=== PATIENT | female | born 1995 | race Caucasian/White ===

== ENCOUNTER 2017-11-02 19:00 | Emergency (ER) | END 2017-11-02 23:08 | disposition home or self-care (01) ==

== ENCOUNTER 2018-05-08 15:43 | Inpatient (IN) | payer OTHER ==
[~2018-05-08] VITALS: Ht 152.4 cm; Wt 71.0 kg
[2018-05-08 15:52] VITALS: Ht 152.4 cm; Wt 71.0 kg
[2018-05-08 15:53] VITALS: BP 127/75
[2018-05-08] MEDS ORDERED: PREN1TAB71 PO (15:55)
--- NOTE | 2018-05-08 16:08 | TRIAGE ---
OB Triage Datetime Report Generated by CPN: 05/08/2018 16:07 Datetime: 05/08/2018 15:59 Vaginal Exam Dilatation (cms): 3.0 Effacement (%): 100 Station: -2 Exam By: Trey CAST Datetime: 05/08/2018 15:47 Stage of : OB Triage Assessment Type: Triage Time of Arrival: 05/08/2018 15:55 EGA: 38.6 Arrived By: Ambulatory Arrived From: Home Chief Complaint: UC'S Movement: Present Contractions: Regular Contractions: 1-3 Rupture of Membranes: Unsure Vaginal Bleeding: None Vaginal Discharge: Present Recent Sexual Intercouse: Denies Abdominal Trauma: Not Applicable Patient Complaints: Contractions Time Provider Notified: 05/08/2018 16:01 Provider Notified: DR. HORVATH Initial Plan: EFM, VE CVALL MD Maternal Assessment Level of Consciousness: Fully Conscious DTR's/Clonus: DTRs 2+; No Clonus Headache: Denies Blurred Vision: No Respiratory Effort: Unlabored; Regular Rhythm; Equal Expansion Breath Sounds, Left: Clear and Equal Breath Sounds, Right: Clear and Equal Nausea/Vomiting: Denies RUQ Epigastric Pain: Denies Lower Extremities Edema: None Degree: None Upper Extremities Edema: None Degree: None Facial Edema: None Temperature Route: Oral Fall Risk Assessment History of Falling: (0) No Secondary Diagnosis: (0) No Ambulatory Aid: (0) Bedrest/Nurse Assist IV Therapy: (0) No Gait: (0) Normal/Bedrest/Immobile Mental Status: (0) Oriented to Own Ability Fall Score: 0 Fall Risk Score Definition: No Risk: No action required Heart Rate Monitor Mode: External US (Annotations: INIITIAL PLACMENT ) Pain Assessment Pain Scale: 7 Pain Presence: Intermittent Pain Type: Cramping Pain Location: Abdomen Pain Goal: 0 Vaginal Exam Dilatation (cms): 3.0 Effacement (%): 100 Station: -2 Exam By: Trey CAST
[2018-05-08] MEDS ORDERED: LIDOCAINE 1% (MPF) 30 ML INJ INJ PRN (16:30)
[2018-05-08] MEDS ORDERED: BUTORPHANOL 2 MG INJ IV PRN (16:30)
[2018-05-08] MEDS ORDERED: METHYLERGONOVINE 0.2 MG INJ IM PRN ×2 (16:30→22:30)
[2018-05-08] MEDS ORDERED: OXYTOCIN 30 UNITS/LR 500 ML IV SCH ×3 (16:30→22:20)
[2018-05-08] MEDS ORDERED: MISOPROSTOL 200 MCG TAB PR PRN ×2 (16:30→22:30)
[2018-05-08] MEDS ORDERED: OXYTOCIN 30 UNITS/LR 500 ML IV PRN ×2 (16:30→22:30)
[2018-05-08] MEDS ORDERED: AMPICILLIN 2 GM/NS (PMX) 100 ML IV ONE (16:30)
[2018-05-08] MEDS ORDERED: CARBOPROST 250 MCG INJ IM PRN ×2 (16:30→22:30)
[2018-05-08] MEDS: LACTATED RINGER'S 1,000 ML IV SCH ×2 (16:33→18:34)
--- NOTE | 2018-05-08 17:36 | PREAC ---
Date/Time of Note Date/Time of Note DATE: 05/08/18 TIME: 17:34 Anesthesia Eval and Record Evaluation Time Pre-Procedure Interview DATE: 05/08/18 TIME: 17:34 Age 22 Sex female NPO: 8 hrs Preoperative diagnosis labor pain Planned procedure labor epidural Past Medical History Past Medical History: None Surgery & Anesthesia Issues No known issue Meds Anticoagulation: No Beta Rachel within 24 hr: No Reason Beta Rachel not given: Pt. not on B-Rachel Reported Medications Vit No.130/Iron/FA ( Tablet) 1 Each Tablet, 1 EACH PO 05/08/18 [none] Unknown Strength No Conflict Check 11/02/17 Current Medications Lactated Ringer's 1,000 ml @ 125 mls/hr Q8H IV Last administered on 05/08/18at 16:33; Admin Dose 125 MLS/HR; Start 05/08/18 at 16:04 Butorphanol Tartrate (Stadol) 2 mg Q2H PRN IV .PAIN; Start 05/08/18 at 16:30 Lidocaine (Xylocaine 1% (Mpf)) 30 ml ONCE PRN INJ .EPISIOTOMY; Start 05/08/18 at 16:30 Oxytocin/Lactated Ringer's 500 ml @ 500 mls/hr ONCE POST IV ; Start 05/08/18 at 16:30 Oxytocin/Lactated Ringer's 500 ml @ 125 mls/hr POST IV ; Start 05/08/18 at 16:30 Oxytocin/Lactated Ringer's 500 ml @ 0 mls/hr ONCE PRN IV .VAGINAL BLEEDING; Start 05/08/18 at 16:30 Methylergonovine Maleate (Methergine) 0.2 mg ONCE PRN IM .VAGINAL BLEEDING; Start 05/08/18 at 16:30 Carboprost Tromethamine (Hemabate) 250 mcg ONCE PRN IM .VAGINAL BLEEDING; Start 05/08/18 at 16:30 Misoprostol (Cytotec) 1,000 mcg ONCE PRN TN .VAGINAL BLEEDING; Start 05/08/18 at 16:30 Ampicillin 50 ml @ 100 mls/hr Q4H IV ; Start 05/08/18 at 20:30 Meds reviewed: Yes Allergies Coded Allergies: No Known Drug Allergies (Verified Allergy, Unknown, 11/02/17) Allergies Reviewed: Yes Labs/Studies Labs Reviewed: Reviewed by anesthesiologist Result Diagram: 05/08/18 1617 Laboratory Tests 05/08/18 16:17 test: Positive Pre-procedure Exam Last vitals Vital Signs Date Temp Pulse Resp B/P (MAP) Pulse Ox O2 O2 Flow FiO2 Time Delivery Rate 05/08/18 98.3 127/75 15:53 (92) Airway: Adequate mouth opening, Adequate thyromental dist Mallampati: Mallampati III Teeth: Normal Lung: Normal Heart: Normal ASA Physical Status ASA physical status: 2 Emergency: None Planned Anesthetic Neuraxial: Epidural Planned Pain Management Epidural, Parenteral pain med Pre-operative Attestations Prior to commencing anesthesia and surgery, the patient was re-evaluated, there was verification of: *The patient's identity *The results of appropriate recent lab work and preoperative vital signs *The above evaluation not changing prior to induction *Anesthetic plan, risk benefits, alternative and complications discussed with patient/family; questions answered; patient/family understands, accepts and wishes to proceed. RAMON URENA MD May 08, 2018 17:36
[2018-05-08] MEDS ORDERED: ONDANSETRON 4 MG INJ IV PRN ×2 (18:00→22:30)
[2018-05-08] MEDS ORDERED: ZOLPIDEM 5 MG TAB PO PRN (18:00)
[2018-05-08] MEDS ORDERED: FENTAnyl 2MCG/ML-ROPIV 0.2% 100 ML BAG EPI SCH (18:00)
[2018-05-08] MEDS ORDERED: DIPHENHYDRAMINE 50 MG INJ IV PRN (18:00)
[2018-05-08] MEDS ORDERED: NALOXONE (0.4 MG/ML) INJ IV PRN (18:00)
[2018-05-08] MEDS ORDERED: KETOROLAC 30 MG INJ IV PRN (18:00)
[2018-05-08] MEDS ORDERED: HYDROmorphONE 0.5 MG/0.5 ML SYG IV PRN ×2 (18:00)
--- NOTE | 2018-05-08 20:12 | PAC ---
Date/Time of Note Date/Time of Note DATE: 05/08/18 TIME: 20:12 Post-Anesthesia Notes Post-Anesthesia Note Last documented vital signs Vital Signs Date Temp Pulse Resp B/P (MAP) Pulse Ox O2 O2 Flow FiO2 Time Delivery Rate 05/08/18 98.3 127/75 15:53 (92) Activity: WNL Respiratory function: WNL Cardiovascular function: WNL Mental status: Baseline Pain reasonably controlled: Yes Hydration appropriate: Yes Nausea/Vomiting absent: Yes RAMON URENA MD May 08, 2018 20:12
[2018-05-08] MEDS ORDERED: AMPICILLIN 1 GM/NS (PMX) 50 ML IV SCH (20:30)
[2018-05-08] MEDS ORDERED: ALBUTEROL HFA 8 GM INHALER INH PRN (20:30)
--- NOTE | 2018-05-08 22:20 | LDN ---
Date/Time of Note Date/Time of Note DATE: 05/08/18 TIME: 22:19 Delivery Summary Weeks of Gestation 38 Placenta Delivered: Spontaneously Meconium: none Episiotomy: No Laceration repair: 1st degree vaginal laceration repair with 3-0 chromic Anesthesia type: Epidural Estimated blood loss: 200 Sponge & Needle done & correct: Yes All needle counts correct: Yes Any foreign bodies felt in the: No Infant Delivery Information Sex Infant Sex: male Apgars 1 Minute: 8 5 Minute: 9 Suctioning Nose & mouth suctioned at silvana: No Delee suction performed: No Umbilical Cord Umbilical cord with: 3 Vessels Cord presentations: no nuchal cord Cord Blood was obtained: Yes MARGARETTE AHMADI MD May 08, 2018 22:20
[2018-05-08] MEDS ORDERED: NACL 0.9% 3 ML SYG IV SCH (22:30)
[2018-05-08] MEDS ORDERED: OXYCODONE/ASPIRIN (4.88/325) TAB PO PRN ×2 (22:30)
[2018-05-08] MEDS ORDERED: WITCH HAZEL/GLYCERIN PAD PR PRN (22:30)
[2018-05-08] MEDS ORDERED: LANOLIN HPA 1 PKT TOP PRN (22:30)
[2018-05-08] MEDS ORDERED: SENNA/DOCUSATE NA (8.6MG/50MG) TAB PO PRN (22:30)
[2018-05-08 23:30] VITALS: BP 124/74; PULSE 88; RESP 19
[2018-05-09] MEDS: GUAIFENESIN/DM 5ML CUP PO PRN ×4 (00:59→23:36)
[2018-05-09] MEDS ORDERED: ACETAMINOPHEN 325 MG TAB PO PRN (01:00)
--- NOTE | 2018-05-09 01:08 | PREOPHP ---
DATE OF ADMISSION: 05/08/2018 HISTORY OF PRESENT ILLNESS: Ms. Julia Norman is a 22-year-old 1, para 0, EDC 05/16/2018 intr auterine at 38 weeks and 6 days gestational age who presented to triage in labor. She kang es any contractions, vaginal bleeding, or discharge. Her care took place with Dr. Boogie . MEDICAL HISTORY: None. MEDICATIONS: vitamins. PAST SURGICAL HISTORY: None. OBSTETRIC HISTORY: Primigravida. GYNECOLOGIC HISTORY: 12, regular 3 to 4 days. Denies any sexually transmitted disease. Sexually ac tive with 1 partner. SOCIAL HISTORY: Denies any smoking, drugs or alcohol. FAMILY HISTORY: None. REVIEW OF SYSTEMS: All within normal except history of present illness. PHYSICAL EXAMINATION: HEENT: Within normal. LUNGS: CTA bilateral. CARDIOVASCULAR: S1, S2, regular rhythm. ABDOMEN: Gravid, nontender. Negative CVA bilateral. EXTREMITIES: Negative edema or calf tenderness. PELVIC: Vaginal exam 6 to 7 cm dilated, 90% effaced, -2 station. Spontaneous rupture of membranes. heart tracing category 1. Tocometer: Regular contractions. ASSESSMENT: Intrauterine at term in labor. PLAN: Anticipated vaginal delivery. GBS prophylaxis. Dictated By: MARGARETTE AHMADI MD ME/NTS Conf#: [id number] DID#: [id number] CC: MARGARETTE AHMADI MD;*EndCC*
[2018-05-09 04:06] VITALS: BP 123/69; PULSE 87; RESP 19
[2018-05-09] MEDS: IBUPROFEN 600 MG TAB PO SCH ×4 (06:07→23:36)
[2018-05-09 07:30] VITALS: BP 110/57; PULSE 99; RESP 18
--- NOTE | 2018-05-09 07:51 | PD.PPDC ---
WASTEWATER ANALYST Discharge Instruction Condition Ofuny9Gg Patient Condition: Wjhdv7s Fair Diet Rtjqp4Pj Diet: Amwnh5w Resume Regular Diet Activity/Restrictions Tksmu5Du Activity: Uyxok6d Normal Activity May Shower Awqno6Ea Restrictions: Jlsjc2b No Exercising No Lifting No Driving No Sexual Activity Nothing in the Vagina No [place] No Tampons, douche Wound/Drain Care Instructions Letpv1Ww Wound/Drain Care Instructions: Jpcie9k Wash with soap and water Keep clean and dry Follow-up Follow-up with Physician: 3 Return to clinic for Myyap3Tn WEB SPECIALIST Instructions: Zgqmo9u Fever greater than 101 Chills Worsening abdominal pain Excessive Vaginal Bleeding More than 2 pads per hour Unable to tolerate diet Owujy0Hp OB Instructions: Kdvgs4y Breast Tenderness Depression Blurried Vision Headache Viqev2Kl Surgical Instructions: Wpcsb5c Incisional Drainage Incisional Redness MARGARETTE AHMADI MD May 09, 2018 07:51
--- NOTE | 2018-05-09 07:51 | DS ---
Date/Time of Note Date/Time of Note DATE: 05/09/18 TIME: 07:50 Obstetrical Discharge Record Final Diagnosis Final Diagnosis: Term delivered Complications Augmentation: No Induction: No Condition on Discharge Physical Assessment Last Vitals: stable afebrile Voiding: Yes Bowel Movement: Yes Breast: Soft, non-tender, Filling Fundus: Firm Abdomen and Incision: soft nt Calf Tenderness: No Patient Condition: Fair MARGARETTE AHMADI MD May 09, 2018 07:51
[2018-05-09] MEDS: SENNA/DOCUSATE NA (8.6MG/50MG) TAB PO SCH ×2 (09:18→21:16)
[2018-05-09 17:03] VITALS: BP 128/58; PULSE 82; RESP 18
[2018-05-09 19:40] VITALS: BP 119/66; PULSE 83
[2018-05-10 04:08] VITALS: BP 109/72; PULSE 81; RESP 19
[2018-05-10] MEDS: IBUPROFEN 600 MG TAB PO SCH (05:44)
[2018-05-10 08:00] VITALS: BP 116/76; PULSE 76; RESP 16
[2018-05-10] MEDS: SENNA/DOCUSATE NA (8.6MG/50MG) TAB PO SCH (09:46)
[2018-05-11] MEDS ORDERED: IBUPROFEN 600 MG TAB PO SCH (18:00)
--- NOTE | 2018-05-14 11:27 | DELSUM ---
Delivery Summary A-C Datetime Report Generated by CPN: 05/14/2018 11:20 DELIVERY PERSONNEL Branch Account Executive: Nadia Archer MATERNAL INFORMATION Delivery Anesthesia: Epidural Medications in Delivery: oxytocin 30units in 500mL Placenta Cultured: No Maternal Complications: None LABOR SUMMARY EDC: 05/16/2018 00:00 No. Babies in Womb: 1 Attempted: No Labor Anesthesia: None LABOR INFORMATION Reason for Induction: Not Applicable Onset of Labor: 05/08/2018 08:00 Complete Dilatation: 05/08/2018 21:58 Oxytocin: N/A Group B Beta Strep: Positive Antibiotics # of Doses: AMPICILLIN X2GM Antibiotics Time of Last Dose: 05/08/2018 20:18 Steroids Given: None Reason Steroids Not Administered: Not Applicable MEMBRANES Membranes Rupture Method: Spontaneous Rupture of Membranes: 05/08/2018 19:47 Length of Rupture (hr): 2.28 Amniotic Fluid Color: Clear Amniotic Fluid Amount: Moderate Amniotic Fluid Odor: None STAGES OF LABOR Stage 1 hr: 13 Stage 1 min: 58 Stage 2 hr: 0 Stage 2 min: 6 Stage 3 hr: 0 Stage 3 min: 4 Total Time in Labor hr: 14 Total Time in Labor min: 8 VAGINAL DELIVERY Episiotomy: None Laceration Extension: First Degree Laceration Type: Vaginal Laceration Repair: Yes Initial Vag Sponge Count: 10 Final Vag Sponge Count: 10 Initial Vag Sharps Count: 1 Final Vag Sharps Count: 2 Sponge Count Correct: Yes; Vaginal Sweep Performed Sharps Count Correct: Yes Count Comment: ADDED 1 SHARP BABY A INFORMATION Delivery Date/Time: 05/08/2018 22:04 Method of Delivery: Vaginal Born in Route : No : N/A Forceps: N/A Vacuum Extraction: N/A Shoulder Dystocia : N/A SHOULDER DYSTOCIA BABY A Delivery Date/Time: 05/08/2018 22:04 PRESENTATION/POSITION BABY A Presentation: Cephalic Cephalic Presentation: Vertex Vertex Position: Left Occipital Anterior Breech Presentation: N/A PLACENTA INFORMATION BABY A Placenta Delivery Time : 05/08/2018 22:08 Placenta Method of Delivery: Expressed Placenta Status: Delivered SCORES BABY A Heart Rate 1 min: >100 bpm Resp Effort 1 min: Good Cry Reflex Irritability 1 min: Cough/Sneeze/Pulls Away Muscle Tone 1 min: Active Motion Color 1 min: Blue/Pale Resuscitation Effort 1 min: Tactile Stimulation SCORE 1 MIN: 8 Heart Rate 5 min: >100 bpm Resp Effort 5 min: Good Cry Reflex Irritability 5 min: Cough/Sneeze/Pulls Away Muscle Tone 5 min: Active Motion Color 5 min: Body [place], Extremit Blue Resuscitation Effort 5 min: Tactile Stimulation SCORE 5 MIN: 9 INFORMATION BABY A Gestational Age at Delivery: 38.6 Gestational Status: Early Term- 37- 38.6 Weeks Infant Outcome : Liveborn Infant Condition : Stable Infant Sex: Male IDENTIFICATION/MEDS BABY A ID Band Number: [id number] ID Band Location: Right Leg; Left Arm Sensor Applied: Yes Sensor Number: [id number] Sensor Location : Cord Clamp Vitamin K Given : Not Given Erythromycin Given: Not Given WEIGHT/LENGTH BABY A Birthweight (gm): 3310 Weight (lb): 7 Weight (oz): 5 Infant Length (in): 19.00 Length (cm): 48.26 CORD INFORMATION BABY A No. Cord Vessels: 3 Nuchal Cord : N/A Cord Blood Taken: Yes Banking/Donate Info: NONE Infant Suction: Mouth; Nose
== END 2018-05-10 11:41 | disposition home or self-care (01) | DRG 807 ==
LOC: OBT 15:43 → L-D 15:45 → OBT 16:05 → L-D 16:09 → PP1 23:21
PROVIDERS: ADMIT Obstetrics & Gynecology; ATTEND Obstetrics & Gynecology
PROC: 10E0XZZ Delivery of Products of Conception, External Approach (ICD-10-PCS; principal; 2018-05-08)
PROC: 0HQ9XZZ Repair Perineum Skin, External Approach (ICD-10-PCS; 2018-05-08)
DX: O71.4 Obstetric high vaginal laceration alone (principal); Z37.0 Single live birth; Z3A.38 38 weeks gestation of pregnancy
CPT/HCPCS: 62319; 76815; 76818; 80307; 84112; 85025; 85610; 85730; 86592; 86850; 86900; 86901; G0463; J0290; J2590; J3010; J7120

== ENCOUNTER 2018-05-23 04:32 | Emergency (ER) | payer OTHER ==
[~2018-05-23] VITALS: Wt 60.2 kg
[~2018-05-23 04:32] MED LIST: PREN1TAB71 PO
[2018-05-23 04:36] VITALS: RESP 18
[2018-05-23] MEDS ORDERED: ONDANSETRON (ODT) 4 MG TAB ODT STA (06:06)
[2018-05-23] MEDS ORDERED: HYDROCODONE/APAP (5/325) TAB PO ONE (06:30)
[2018-05-23] MEDS ORDERED: NITR-58 PO (07:43)
[2018-05-23] MEDS ORDERED: ACET325T33 PO (07:43)
[2018-05-23 07:55] VITALS: BP 129/70; PULSE 86
--- NOTE | 2018-05-23 08:22 | ERD ---
ER Documentation Chief Complaint Chief Complaint LRQ PAIN X'S 1 DAY, NATURAL VAG DELIVERY MAY 08 HPI 22-year-old female presenting with right lower quadrant pain times 1 day. Patient had a vaginal delivery 2 and half weeks ago. She denies any complications is only having mild bleeding. She has some mild dysuria with no back pain. No fevers. Patient has pain with walking. Medical history asthma. NKDA. Surgical history denies. Social history denies ROS All systems reviewed and are negative except as per history of present illness. Medications Home Meds Active Scripts Acetaminophen* (Tylenol*) 325 Mg Tablet, 2 TAB PO Q6 PRN for PAIN AND OR ELEVATED TEMP, #20 TAB Prov:OLGA WILEY PA-C 05/23/18 Nitrofurantoin Monohyd Macrocr* (Macrobid*) 100 Mg Capsr, 100 MG PO BID for 14 Days, CAP Prov:OLGA WILEY PA-C 05/23/18 Reported Medications Vit No.130/Iron/FA ( Tablet) 1 Each Tablet, 1 EACH PO 05/08/18 Allergies Allergies: Coded Allergies: No Known Drug Allergies (Verified Allergy, Unknown, 11/02/17) PMhx/Soc Medical and Surgical Hx: pt denies Medical Hx, pt denies Surgical Hx History of Surgery: No Anesthesia Reaction: No Hx Neurological Disorder: No Hx Respiratory Disorders: No Hx Cardiac Disorders: No Hx Psychiatric Problems: No Hx Miscellaneous Medical Probl: No Hx Alcohol Use: No Hx Substance Use: No Hx Tobacco Use: No Smoking Status: Never smoker FmHx Family History: No diabetes, No coronary disease, No other Physical Exam Vitals Vital Signs Date Temp Pulse Resp B/P (MAP) Pulse Ox O2 O2 Flow FiO2 Time Delivery Rate 05/23/18 86 129/70 07:55 (89) 05/23/18 98.5 78 18 115/71 99 04:36 (86) Physical Exam GENERAL: The patient is well-appearing, well-nourished, in no acute distress CHEST: Clear to auscultation bilaterally. There are no rales, wheezes or rhonchi. HEART: Regular rate and rhythm. No murmurs, clicks, rubs or gallops. ABDOMEN: Normal active bowel sounds. No distention. No organomegaly. Tender to palpation in the right lower quadrant with no rebound tenderness. Result Diagram: 05/23/18 0606 05/23/18 0606 Results 24 hrs Laboratory Tests Test 05/23/18 06:06 05/23/18 06:14 05/23/18 06:39 White Blood Count 7.7 10^3/ul Red Blood Count 3.96 10^6/ul Hemoglobin 12.5 g/dl Hematocrit 36.7 % Mean Corpuscular Volume 92.7 fl Mean Corpuscular Hemoglobin 31.6 pg Mean Corpuscular 34.1 g/dl Hemoglobin Concent Red Cell Distribution Width 11.4 % Platelet Count 343 10^3/UL Mean Platelet Volume 9.4 fl Immature Granulocytes % 0.400 % Neutrophils % 53.4 % Lymphocytes % 35.2 % Monocytes % 7.3 % Eosinophils % 3.0 % Basophils % 0.7 % Nucleated Red Blood Cells % 0.0 /100WBC Immature Granulocytes # 0.030 10^3/ul Neutrophils # 4.1 10^3/ul Lymphocytes # 2.7 10^3/ul Monocytes # 0.6 10^3/ul Eosinophils # 0.2 10^3/ul Basophils # 0.1 10^3/ul Nucleated Red Blood Cells # 0.0 10^3/ul Sodium Level 141 mmol/L Potassium Level 3.9 mmol/L Chloride Level 105 mmol/L Carbon Dioxide Level 26 mmol/L Anion Gap 10 Blood Urea Nitrogen 20 mg/dl Creatinine 0.67 mg/dl Est Glomerular Filtrat > 60 mL/min Rate mL/min Glucose Level 98 mg/dl Calcium Level 9.2 mg/dl Total Bilirubin 0.3 mg/dl Direct Bilirubin 0.00 mg/dl Indirect Bilirubin 0.3 mg/dl Aspartate Amino Transf (AST/SGOT) 22 IU/L Alanine 15 IU/L Aminotransferase (ALT/SGPT) Alkaline Phosphatase 132 IU/L Total Protein 7.3 g/dl Albumin 4.1 g/dl Globulin 3.20 g/dl Albumin/Globulin Ratio 1.28 Lipase 64 U/L Serum HCG, Qualitative NEGATIVE Urine Color YELLOW Urine Clarity SLIGHTLY CLOUDY Urine pH 6.0 Urine Specific [place] 1.014 Urine Ketones NEGATIVE mg/dL Urine Nitrite NEGATIVE mg/dL Urine Bilirubin NEGATIVE mg/dL Urine Urobilinogen NEGATIVE mg/dL Urine Leukocyte Esterase 3+ Araseli/ul Urine Microscopic RBC 14 /HPF Urine Microscopic WBC 106 /HPF Urine Bacteria FEW /HPF Urine Hemoglobin 1+ mg/dL Urine Glucose NEGATIVE mg/dL Urine Total Protein NEGATIVE mg/dl Current Medications Medications Dose Sig/[place] Start Time Status Last (Trade) Ordered Route PRN Stop Time Admin Dose Reason Admin 1 tab ONCE ONCE 05/23/18 DC 05/23/18 Acetaminophen PO 06:30 05/23/18 06:51 / 06:31 Hydrocodone Bitart ([place] (5/325)) Ondansetron 4 mg ONCE STAT 05/23/18 DC 05/23/18 HCl (Zofran ODT 06:06 05/23/18 06:51 Odt) 06:07 Procedures/MDM DIAGNOSTIC IMAGING REPORT Patient: ZACHARY CAST : 1995 Age: 22 Sex: F MR #: [id number] DOS: 05/23/1806 Ordering MD: DONAVAN WILEY PA-C Location: [facility] Room/Bed: PROCEDURE: CT Abdomen and Pelvis without contrast. CLINICAL INDICATION: Abdominal pain TECHNIQUE: CT scan of the abdomen and pelvis without contrast was performed on a multi-detector high-resolution CT scanner. Coronal and sagittal reformatted images obtained from the axial source images. Images were reviewed on a high- resolution PACS workstation. Exam CTDI 7.95 mGy Exam DLP 421.13 mGy-cm DICOM images are available. One or more of the following dose reduction techniques were utilized: 1.) Automated exposure control 2.) Adjustment of the mA +/- kV according to patient's size 3.) Use of iterative reconstruction technique. COMPARISON: None FINDINGS: CT abdomen: LOWER THORAX: Lung bases are clear. LIVER AND GALLBLADDER: No abnormal findings. SPLEEN: Normal. PANCREAS: Normal. ADRENAL GLANDS: Normal. KIDNEYS: Kidneys are symmetric in size and morphology. No hydronephrosis or renal calculus. Bilateral ureters are unremarkable. VASCULATURE: Abdominal aorta is normal in caliber. LYMPH NODES: No significant retroperitoneal or mesenteric lymphadenopathy. BOWEL AND MESENTERY: Stomach and small bowel are unremarkable. There is a small fat containing umbilical hernia. A normal appendix is identified. Large bowel is unremarkable. CT pelvis: The urinary bladder appears normal. Uterus and adnexal structures are unremarkable for age. There is no free fluid in the pelvis. No evidence of pelvic lymphadenopathy. Bones: Regional bones and superficial soft tissues are grossly unremarkable for age. IMPRESSION: Negative unenhanced CT of the abdomen and pelvis. DIAGNOSTIC IMAGING REPORT Patient: ZACHARY CAST : 1995 Age: 22 Sex: F [id number] DOS: 05/23/18 0606 Ordering MD: DONAVAN WILEY PA-C Location: [facility] Room/Bed: PROCEDURE: Pelvic ultrasound color-flow Doppler of the adnexa CLINICAL INDICATION: Pain TECHNIQUE: Multiple sagittal, oblique and transverse real time images were obtained of the lower abdomen and pelvis using a transabdominal as well a transvaginal approach. Color-flow Doppler of the adnexa was performed. COMPARISON: Obstetrical ultrasound 05/08/2018 FINDINGS: Mild enlarged uterus measuring 10.62 x 6.05 x 7.72 cm consistent with uterus. Myometrium is homogeneous. Endometrium normal thickness maximal AP diameter 0.38 cm without focal lesions. There is trace fluid within the endometr ial canal. Ovaries are normal in size the right measuring 2.55 x 1.47 x 1.57 cm and the left measuring 2.97 x 1.47 x 1.98 cm. No ovarian masses. Flow to both ovaries without ultrasonic evidence of ovarian torsion. No adnexal masses or free fluid. IMPRESSION: 1.. Mildly enlarged uterus consistent with uterus without focal lesions. 2. Trace fluid within the endometrial canal without endometrial thickening or focal lesions. 3. Normal size ovaries without focal lesions and no ultrasonic evidence of ovarian torsion. 4. No adnexal masses or free fluid. MDM: 22-year-old female presenting with findings consistent with urinary tract infection. I have low suspicion for pelvic infection or abnormality. Patient's ultrasounds within normal limits. I have low suspicion for appendicitis or other acute abdominal emergencies. CT scan is within normal limits. Patient is discharged with strict ER precautions and told to follow-up with primary care within 1-2 days for close evaluation. Patient is told if symptoms change or worsen to return immediately to the ER. All questions answered at discharge Departure Diagnosis: Primary Impression: Abdominal pain Condition: Stable Patient Instructions: Abdominal Pain, Understanding Urinary Tract Infections (UTIs) Referrals: COMMUNITY CLINICS YOU HAVE RECEIVED A MEDICAL SCREENING EXAM AND THE RESULTS INDICATE THAT YOU DO NOT HAVE A CONDITION THAT REQUIRES URGENT TREATMENT IN THE EMERGENCY DEPARTMENT. FURTHER EVALUATION AND TREATMENT OF YOUR CONDITION CAN WAIT UNTIL YOU ARE SEEN IN YOUR DOCTORS OFFICE WITHIN THE NEXT 1-2 DAYS. IT IS YOUR RESPONSIBILITY TO MAKE AN APPOINTMENT FOR FOLOW-UP CARE. IF YOU HAVE A PRIMARY DOCTOR --you should call your primary doctor and schedule an appointment IF YOU DO NOT HAVE A PRIMARY DOCTOR YOU CAN CALL OUR PHYSICIAN REFERRAL HOTLINE AT IF YOU CAN NOT AFFORD TO SEE A PHYSICIAN YOU CAN CHOSE FROM THE FOLLOWING [facility] [address] [facility] [address] [facility] [facility] [address] [facility] [address] [facility] [address] [facility]. [address] Additional Instructions: FOLLOW UP WITH YOUR PRIMARY CARE PHYSICIAN TOMORROW.Return to this facility if you are not improving as expected. OLGA WILEY PA-C May 23, 2018 08:22
== END 2018-05-23 07:56 | disposition home or self-care (01) ==
LOC: FTE 04:32
DX: O90.89 Other complications of the puerperium, not elsewhere classified (principal); R10.32 Left lower quadrant pain; R10.2 Pelvic and perineal pain
CPT/HCPCS: 74176; 76856; 80053; 81001; 83690; 84703; 85025; Z7610; 36415

== ENCOUNTER 2018-06-04 22:14 | Emergency (ER) | payer OTHER ==
[~2018-06-04] VITALS: Ht 160 cm; Wt 68.0 kg
[~2018-06-04 22:14] MED LIST changes: +ACET325T33 PO; +NITR-58 PO
[2018-06-04 22:15] VITALS: Ht 160 cm; Wt 68.0 kg
--- NOTE | 2018-06-05 02:00 | ERD ---
ER Documentation Chief Complaint Chief Complaint RUQ abdominal pain hx of gallstones HPI 22 year old female presents with history of epigastric pain occurring today. States that she felt sharp pain for about an hour which self resolved. She denies any current pain she does state that she has had a history of gallstones. Patient was just here 2 weeks ago with similar abdominal pain. CT was performed and there was no abnormal findings. In addition patient just gave 6 weeks ago with an uncomplicated vaginal delivery. Patient denies nausea, shortness of breath, diaphoresis, pain made worse with exertion, fevers, vomiting, diarrhea, dysuria, chest pain, shortness of breath, leg edema, leg erythema, headache, vision troubles, flank pain, hematuria. ROS All systems reviewed and are negative except as per history of present illness. Medications Home Meds Active Scripts Hydrocodone/Acetaminophen ([place] 5-325 Tablet) 1 Each Tablet, 1 TAB PO Q6H PRN for PAIN, #15 TAB Prov:JAVIER SNIDER 06/05/18 Ibuprofen* (Motrin*) 600 Mg Tab, 600 MG PO Q6 for pain, #30 TAB Prov:JAVIER SNIDER 06/05/18 Cephalexin* (Keflex*) 500 Mg Capsule, 500 MG PO BID for 14 Days, CAP Prov:JAVIER SNIDER 06/05/18 Acetaminophen* (Tylenol*) 325 Mg Tablet, 2 TAB PO Q6 PRN for PAIN AND OR ELEVATED TEMP, #20 TAB Prov:OLGA WILEY PA-C 05/23/18 Nitrofurantoin Monohyd Macrocr* (Macrobid*) 100 Mg Capsr, 100 MG PO BID for 14 Days, CAP Prov:OLGA WILEY PA-C 05/23/18 Reported Medications Vit No.130/Iron/FA ( Tablet) 1 Each Tablet, 1 EACH PO 05/08/18 Allergies Allergies: Coded Allergies: No Known Drug Allergies (Verified Allergy, Unknown, 11/02/17) PMhx/Soc Medical and Surgical Hx: pt denies Medical Hx, pt denies Surgical Hx History of Surgery: No Anesthesia Reaction: No Hx Neurological Disorder: No Hx Respiratory Disorders: No Hx Cardiac Disorders: No Hx Psychiatric Problems: No Hx Miscellaneous Medical Probl: No Hx Alcohol Use: No Hx Substance Use: No Hx Tobacco Use: No Smoking Status: Never smoker FmHx Family History: No diabetes, No coronary disease, No other Physical Exam Vitals Vital Signs Date Temp Pulse Resp B/P (MAP) Pulse Ox O2 O2 Flow FiO2 Time Delivery Rate 06/05/18 98.6 77 19 112/82 100 Room Air 04:11 (92) 06/05/18 88 18 110/69 99 Room Air 01:56 (83) 06/04/18 99.2 116 22 148/90 100 22:15 (109) Physical Exam Const: No acute distress Head: Atraumatic Eyes: Normal Conjunctiva ENT: Normal External Ears, Nose and Mouth. Neck: Full range of motion. No meningismus. Resp: Clear to auscultation bilaterally Cardio: Regular rate and rhythm, no murmurs Abd: Soft, non tender, non distended. Normal bowel sounds. No McBurney's tenderness. Patient able to jump up and down on exam. No Jaime's. Skin: No petechiae or rashes Back: No midline or flank tenderness Ext: No cyanosis, or edema Neur: Awake and alert Psych: Normal Mood and Affect Result Diagram: 06/05/1815806/05/18158 Results 24 hrs Laboratory Tests Test 06/05/18 01:56 06/05/18 01:59 POC Beta HCG, Qualitative NEGATIVE White Blood Count 11.2 10^3/ul Red Blood Count 4.08 10^6/ul Hemoglobin 12.4 g/dl Hematocrit 36.8 % Mean Corpuscular Volume 90.2 fl Mean Corpuscular Hemoglobin 30.4 pg Mean Corpuscular Hemoglobin Concent 33.7 g/dl Red Cell Distribution Width 11.2 % Platelet Count 266 10^3/UL Mean Platelet Volume 10.1 fl Immature Granulocytes % 0.300 % Neutrophils % 71.4 % Lymphocytes % 20.0 % Monocytes % 7.0 % Eosinophils % 1.0 % Basophils % 0.3 % Nucleated Red Blood Cells % 0.0 /100WBC Immature Granulocytes # 0.030 10^3/ul Neutrophils # 8.0 10^3/ul Lymphocytes # 2.2 10^3/ul Monocytes # 0.8 10^3/ul Eosinophils # 0.1 10^3/ul Basophils # 0.0 10^3/ul Nucleated Red Blood Cells # 0.0 10^3/ul Urine Color YELLOW Urine Clarity SLIGHTLY CLOUDY Urine pH 6.0 Urine Specific [place] 1.013 Urine Ketones NEGATIVE mg/dL Urine Nitrite NEGATIVE mg/dL Urine Bilirubin NEGATIVE mg/dL Urine Urobilinogen NEGATIVE mg/dL Urine Leukocyte Esterase 2+ Araseli/ul Urine Microscopic RBC 2 /HPF Urine Microscopic WBC 9 /HPF Urine Squamous Epithelial Cells FEW /HPF Urine Mucus FEW /HPF Urine Hemoglobin NEGATIVE mg/dL Urine Glucose NEGATIVE mg/dL Urine Total Protein NEGATIVE mg/dl Sodium Level 143 mmol/L Potassium Level 4.0 mmol/L Chloride Level 107 mmol/L Carbon Dioxide Level 26 mmol/L Anion Gap 10 Blood Urea Nitrogen 17 mg/dl Creatinine 0.68 mg/dl Est Glomerular Filtrat Rate mL/min > 60 mL/min Glucose Level 99 mg/dl Calcium Level 9.6 mg/dl Total Bilirubin 0.6 mg/dl Direct Bilirubin 0.00 mg/dl Indirect Bilirubin 0.6 mg/dl Aspartate Amino Transf (AST/SGOT) 174 IU/L Alanine Aminotransferase (ALT/SGPT) 93 IU/L Alkaline Phosphatase 126 IU/L Total Protein 7.7 g/dl Albumin 4.5 g/dl Globulin 3.20 g/dl Albumin/Globulin Ratio 1.40 Current Medications Medications Dose Sig/[place] Start Time Status Last (Trade) Ordered Route PRN Stop Time Admin Dose Reason Admin Ketorolac 60 mg ONCE STAT 06/05/18 DC 06/05/18 Tromethamine IM 02:01 02:09 (Toradol) 06/05/18 02:02 Ceftriaxone 1 gm ONCE ONCE 06/05/18 DC 06/05/18 Sodium IM 04:00 04:07 (Rocephin) 06/05/18 04:01 Lidocaine 5 ml ONCE ONCE 06/05/18 DC (Xylocaine INJ 04:00 1% (Mpf)) 06/05/18 04:01 Procedures/MDM DIAGNOSTIC IMAGING REPORT Patient: ZACHARY CAST : 1995 Age: 22 Sex: F MR #: [id number] DOS: 06/05/18 0141 Ordering MD: JAVIER SNIDER Location: [facility] Room/Bed: PROCEDURE: Ultrasound gallbladder CLINICAL INDICATION: Epigastric pain TECHNIQUE: Irwin scale, color flow and Doppler ultrasound images of the abdomen. COMPARISON: None FINDINGS: Pancreas: Obscured by shadowing bowel gas. Liver: Liver demonstrates normal size and echotexture. No parenchymal lesions are identified. Normal directional flow toward the liver is demonstrated in the main portal vein. Gallbladder: There are small multiple mobile stones within the gallbladder. No significant thickening of the gallbladder wall or evidence of pericholecystic fluid. Biliary system: No significant dilatation of the intrahepatic or extrahepatic biliary system. Common bile duct measures 4 mm. Right Kidney: Measures 9.6 cm in length. No hydronephrosis, intrarenal calculus or abnormal perinephric fluid. Additional findings: None IMPRESSION: 1. Multiple small mobile gallstones. No wall thickening or pericholecystic fluid to indicate acute inflammation. 2. Pancreas not clearly seen. RPTAT: [facility] Physician Favio Date Time Electronically viewed and signed by Physician Favio on 06/05/2018 03:15 xB/ CC: JAVIER SNIDER [id number] MDM: Patient initially had blood pressure of 148/90. This was concerning given patient's recent delivery of baby 1 month ago. I discussed the case with Dr. Melo who said that since blood pressure had gone down during ER visit there was no reason for concern. Patient denies any head pain, vision troubles, fl ank pain. US showed gallstones which correlates clinically with patients symptoms. In additoin, patients UA was concerning for UTI. Patient given ceftraixone in the ER and discharged with rx for keflex. I have low suspicion for appendcitis, choleyctstitis, acute abdomen, AAA, ovarion torsion, or any emergent condition. Pt discharged with strict ER precations. Pateint advised to follow up with PMD. All questions answered at discharge. Departure Diagnosis: Primary Impression: Biliary colic Additional Impression: UTI (urinary tract infection) Urinary tract infection type: site unspecified Hematuria presence: without hematuria Qualified Codes: N39.0 - Urinary tract infection, site not specified Condition: Stable JAVIER SNIDER Jun 05, 2018 02:00
[2018-06-05] MEDS ORDERED: KETOROLAC 60 MG INJ IM STA (02:01)
[2018-06-05] MEDS ORDERED: IBUP-1542 PO (03:53)
[2018-06-05] MEDS ORDERED: CEPH-443 PO (03:53)
[2018-06-05] MEDS ORDERED: HYDR-4011 PO (03:53)
[2018-06-05] MEDS ORDERED: LIDOCAINE 1% (MPF) 5 ML VIAL INJ ONE (04:00)
[2018-06-05] MEDS ORDERED: CEFTRIAXONE 1 GM INJ IM ONE (04:00)
[2018-06-05 04:11] VITALS: BP 112/82; PULSE 77; RESP 19
== END 2018-06-05 04:12 | disposition home or self-care (01) ==
LOC: FTE 22:14
DX: K80.20 Calculus of gallbladder without cholecystitis without obstruction (principal); N39.0 Urinary tract infection, site not specified
CPT/HCPCS: 76705; 80053; 81001; 81025; 85025; 87086; 96372; J0696; J1885; Z7502; Z7610

== ENCOUNTER 2018-08-08 21:34 | Emergency (ER) | payer SELFPAY ==
[~2018-08-08 21:34] MED LIST changes: +CEPH-443 PO; +HYDR-4011 PO; +IBUP-1542 PO
== END 2018-08-08 23:47 | disposition left against medical advice (07) ==
LOC: E/R 21:34
DX: Z53.21 Procedure and treatment not carried out due to patient leaving prior to being seen by health care provider (principal)

== ENCOUNTER 2018-08-12 11:18 | Emergency (ER) | payer OTHER ==
[~2018-08-12] VITALS: Ht 157.5 cm; Wt 58.9 kg
[2018-08-12 11:20] VITALS: BP 128/68; PULSE 83; RESP 18; Ht 157.5 cm; Wt 58.9 kg
--- NOTE | 2018-08-12 13:39 | ERD ---
ER Documentation Chief Complaint Chief Complaint vaginal bleeding/cramping x last night 8 weeks HPI 22-year-old G2, P1 female presents with complaint of spotting since last night. States that she is not going through any pads. Denies any dysuria, hematuria, cramping, abdominal pain, nausea, vomiting, diarrhea, fevers, chills, palpitations, chest pain, lightheadedness. She has a history of gallstones. ROS All systems reviewed and are negative except as per history of present illness. Medications Home Meds Active Scripts Hydrocodone/Acetaminophen ([place] 5-325 Tablet) 1 Each Tablet, 1 TAB PO Q6H PRN for PAIN, #15 TAB Prov:JAVIER SNIDER 06/05/18 Ibuprofen* (Motrin*) 600 Mg Tab, 600 MG PO Q6 for pain, #30 TAB Prov:JAVIER SNIDER 06/05/18 Cephalexin* (Keflex*) 500 Mg Capsule, 500 MG PO BID for 14 Days, CAP Prov:JAVIER SNIDER 06/05/18 Acetaminophen* (Tylenol*) 325 Mg Tablet, 2 TAB PO Q6 PRN for PAIN AND OR ELEVATED TEMP, #20 TAB Prov:OLGA WILEY PA-C 05/23/18 Nitrofurantoin Monohyd Macrocr* (Macrobid*) 100 Mg Capsr, 100 MG PO BID for 14 Days, CAP Prov:OLGA WILEY PA-C 05/23/18 Reported Medications Vit No.130/Iron/FA ( Tablet) 1 Each Tablet, 1 EACH PO 05/08/18 Allergies Allergies: Coded Allergies: No Known Drug Allergies (Verified Allergy, Unknown, 11/02/17) PMhx/Soc History of Surgery: No Anesthesia Reaction: No Hx Neurological Disorder: No Hx Respiratory Disorders: No Hx Cardiac Disorders: No Hx Psychiatric Problems: No Hx Miscellaneous Medical Probl: Yes (ASTHMA, GALLSTONES, ECOLI) Hx Alcohol Use: No Hx Substance Use: No Hx Tobacco Use: No Smoking Status: Never smoker FmHx Family History: No diabetes, No coronary disease, No other Physical Exam Vitals Vital Signs Date Temp Pulse Resp B/P (MAP) Pulse Ox O2 O2 Flow FiO2 Time Delivery Rate 08/12/18 98.9 83 18 128/68 99 11:20 (88) Physical Exam Const: No acute distress Head: Atraumatic Eyes: Normal Conjunctiva ENT: Normal External Ears, Nose and Mouth. Neck: Full range of motion. No meningismus. Resp: Clear to auscultation bilaterally Cardio: Regular rate and rhythm, no murmurs Abd: Soft, non tender, non distended. Normal bowel sounds Skin: No petechiae or rashes Back: No midline or flank tenderness Ext: No cyanosis, or edema Neur: Awake and alert Psych: Normal Mood and Affect Result Diagram: 08/12/18 1234 Results 24 hrs Laboratory Tests Test 08/12/18 12:34 White Blood Count 7.3 10^3/ul Red Blood Count 4.18 10^6/ul Hemoglobin 12.5 g/dl Hematocrit 37.1 % Mean Corpuscular Volume 88.8 fl Mean Corpuscular Hemoglobin 29.9 pg Mean Corpuscular Hemoglobin Concent 33.7 g/dl Red Cell Distribution Width 11.9 % Platelet Count 272 10^3/UL Mean Platelet Volume 9.9 fl Immature Granulocytes % 0.300 % Neutrophils % 65.7 % Lymphocytes % 25.8 % Monocytes % 7.0 % Eosinophils % 0.7 % Basophils % 0.5 % Nucleated Red Blood Cells % 0.0 /100WBC Immature Granulocytes # 0.020 10^3/ul Neutrophils # 4.8 10^3/ul Lymphocytes # 1.9 10^3/ul Monocytes # 0.5 10^3/ul Eosinophils # 0.1 10^3/ul Basophils # 0.0 10^3/ul Nucleated Red Blood Cells # 0.0 10^3/ul Urine Color YELLOW Urine Clarity CLEAR Urine pH 6.0 Urine Specific [place] 1.013 Urine Ketones NEGATIVE mg/dL Urine Nitrite NEGATIVE mg/dL Urine Bilirubin NEGATIVE mg/dL Urine Urobilinogen NEGATIVE mg/dL Urine Leukocyte Esterase NEGATIVE Araseli/ul Urine Microscopic RBC 2 /HPF Urine Microscopic WBC 3 /HPF Urine Squamous Epithelial Cells FEW /HPF Urine Hemoglobin 2+ mg/dL Urine Glucose NEGATIVE mg/dL Urine Total Protein NEGATIVE mg/dl Procedures/MDM ER Course: CBC, UA, beta quant HCG, type and RH, vaginal US/abdominal US ordered. MDM: CBC, UA, beta quant HCG, type and RH, vaginal US/abdominal US ordered. All results within limits. Ultrasound showed live intrauterine . Although triage note stated she was complaining of cramping, patient emphatically denied this during the exam and stated that she did not have any abdominal pain or history of cramping. At this point I have low suspicion for ectopic based on results of US, hemodynamic stability, physical exam and patient history. I have low suspicion for septic , pyelonephritis, placenta abrupta, appendicitis, cholecystitis, bowel obstruction, ovarian torsion, symptomatic anema, PID, surgical abdomen, hemorrhage, or other life threatening conditions based on patient history, physical exam, and lab/imaging results. At time of discharge patient was hemodynamically stable. At this time, patient is stable for discharge and outpatient management. I have instructed the patient to follow-up with his/her primary care physician in 1-2 days. I have discussed with the patient the possibility of needing to see a specialist for further workup and imaging studies if symptoms persist. I have instructed the patient to promptly return to the ER for any new or worsening symptoms including but not limited to increased pain, fever, nausea, vomiting, weakness or LOC. The patient and/or family expressed understanding of and agreement with this plan. All questions were answered. Home care instructions were provided. [Communication with patient both during the exam and instructions for discharge were performed with using a electronics processing supervisor . Patient gave verbal confirmation to the practitioner, through the electronics processing supervisor, that they understood everythign that was being said to them.] DISCLAIMER: Inadvertent spelling and grammatical errors are likely due to EHR/dictation software use and do not reflect on the overall quality of patient care. Also, please note that the electronic time recorded on this note does not necessarily reflect the actual time of the patient encounter. Departure Diagnosis: Primary Impression: Vaginal bleeding in patient at less than 20 weeks ges... Condition: Stable Patient Instructions: Bleeding During Early Referrals: [facility] (PCP) Additional Instructions: Please return for repeat exam in 48 hours. Please follow-up with [facility] within 24 hours. Return to ER if symptoms worsen before then. JAVIER SNIDER Aug 12, 2018 13:38
== END 2018-08-12 13:39 | disposition home or self-care (01) ==
LOC: FTE 11:18
DX: O20.9 Hemorrhage in early pregnancy, unspecified (principal); O99.511 Diseases of the respiratory system complicating pregnancy, first trimester; J45.909 Unspecified asthma, uncomplicated; R10.2 Pelvic and perineal pain; Z3A.08 8 weeks gestation of pregnancy
CPT/HCPCS: 36415; 76801; 81001; 84702; 85025; 86900; 86901; Z7502

== ENCOUNTER 2018-09-30 19:50 | Emergency (ER) | payer OTHER ==
[~2018-09-30] VITALS: Ht 154.9 cm; Wt 60.1 kg
[2018-09-30 19:58] VITALS: Ht 154.9 cm; Wt 60.1 kg
[2018-09-30 20:49] VITALS: BP 102/66; PULSE 99; RESP 18
--- NOTE | 2018-09-30 20:49 | ERD ---
ER Documentation Chief Complaint Chief Complaint RIGHT BREAST LUMP X1DAY; NO PUSS, REDNESS HPI Patient is a 22-year-old female, past medical history of asthma, who presents to the ER for concerns of a right breast lump x1 day. Patient states she felt the lump last night. Lump is located on the right breast in the 34 o'clock position. Patient denies any redness or swelling surrounding the area. Patient has no fevers or chills. Patient has no nipple bleeding or discharge. Patient is 4 months . Patient is not breast-feeding her baby. Patient denies any chest pain, shortness of breath, leg swelling, recent travel. Patient denies family history of breast cancer. Patient admits to feeling nervous secondary to breast lump and concerns of cancer. ROS All systems reviewed and are negative except as per history of present illness. Medications Home Meds Active Scripts Ibuprofen* (Motrin*) 600 Mg Tab, 600 MG PO Q6, #30 TAB Prov:ELY NGO PA-C 09/30/18 Hydrocodone/Acetaminophen ([place] 5-325 Tablet) 1 Each Tablet, 1 TAB PO Q6H PRN for PAIN, #15 TAB Prov:JAVIER SNIDER 06/05/18 Ibuprofen* (Motrin*) 600 Mg Tab, 600 MG PO Q6 for pain, #30 TAB Prov:JAVIER SNIDER 06/05/18 Cephalexin* (Keflex*) 500 Mg Capsule, 500 MG PO BID for 14 Days, CAP Prov:JAVIER SNIDER 06/05/18 Acetaminophen* (Tylenol*) 325 Mg Tablet, 2 TAB PO Q6 PRN for PAIN AND OR ELEVATED TEMP, #20 TAB Prov:OLGA WILEY PA-C 05/23/18 Nitrofurantoin Monohyd Macrocr* (Macrobid*) 100 Mg Capsr, 100 MG PO BID for 14 Days, CAP Prov:OLGA WILEY PA-C 05/23/18 Reported Medications Vit No.130/Iron/FA ( Tablet) 1 Each Tablet, 1 EACH PO 05/08/18 Allergies Allergies: Coded Allergies: No Known Drug Allergies (Verified Allergy, Unknown, 11/02/17) PMhx/Soc History of Surgery: No Anesthesia Reaction: No Hx Neurological Disorder: No Hx Respiratory Disorders: Yes (Asthma ) Hx Cardiac Disorders: No Hx Psychiatric Problems: No Hx Miscellaneous Medical Probl: Yes (ASTHMA, GALLSTONES, ECOLI) Hx Alcohol Use: No Hx Substance Use: No Hx Tobacco Use: No Smoking Status: Unknown if ever smoked FmHx Family History: No diabetes Physical Exam Vitals Vital Signs Date Temp Pulse Resp B/P (MAP) Pulse Ox O2 O2 Flow FiO2 Time Delivery Rate 09/30/18 98.2 103 19 100/61 98 19:58 (74) Physical Exam GENERAL: Well-developed, well-nourished female. Appears in no acute distress. HEAD: Normocephalic, atraumatic. EYES: Pupils are equally reactive bilaterally. EOMs grossly intact. No conjunctival erythema. NECK: Supple. No meningismus. Normal range of motion of the neck. LUNG: Clear to auscultation bilaterally. No rhonchi, wheezing, rales or coarse breath sounds. HEART: Tachycardic. No murmurs, rubs or gallops. Equal pulses in bilateral upper extremities. R BREAST: Tender palpable 1 cm round lump noted in the right breast in the 3 to 4 o'clock position. No surrounding erythema or warmth. No nipple bleeding or discharge. EXTREMITIES: Equal pulses bilaterally. No peripheral clubbing, cyanosis or edema. No unilateral leg swelling. NEUROLOGIC: Alert and oriented. Moving all four extremities without any difficulty. Normal speech. Steady gait. SKIN: Normal color. Warm and dry. No rashes or lesions. Procedures/MDM MEDICAL DECISION MAKING: Patient is a 22-year-old female presents ER for concerns of a right breast lump x1 day. Patient is 4 months . Patient denies breast-feeding baby. Patient denies any fevers or chills. Patient denies chest pain or shortness of breath.. Vital signs were reviewed. Patient is afebrile. Patient was not hypoxic. Patient was hemodynamically stable. On exam, tender palpable lump noted in the right breast in the 3 to 4 o'clock position. No surrounding erythema, warmth or swelling to suggest abscess or deep space infection. Low suspicion for mastitis as as patient is not breast-feeding her baby. Patient was advised that she will need to follow-up with her primary care physician for mammogram/breast ultrasound on an outpatient basis. Patient states she will contact her primary care physician tomorrow for an appointment. Unable to rule out malignancy at this time. Low suspicion for ACS, pericarditis, arrhythmia, PE. Patient was nontoxic, [id number] prior to discharge. PRESCRIPTION: Ibuprofen DISCHARGE: At this time, patient is stable for discharge and outpatient management. I have instructed the patient to follow-up with his/her primary care physician in 1-2 days. I have discussed with the patient the possibility of needing to see a specialist for further workup and imaging studies if symptoms persist. I have instructed the patient to promptly return to the ER for any new or worsening symptoms including increased pain, fever, nausea, vomiting, weakness or LOC. The patient and/or family expressed understanding of and agreement with this plan. All questions were answered. Home care instructions were provided. Disclaimer: Inadvertent spelling and grammatical errors are likely due to EHR/dictation software use and do not reflect on the overall quality of patient care. Also, please note that the electronic time recorded on this note does not necessarily reflect the actual time of the patient encounter. Departure Diagnosis: Primary Impression: Lump of breast, right Condition: Fair Patient Instructions: Breast Health: Normal Breast Changes Additional Instructions: Follow-up with your primary care physician for mammogram/breast ultrasound on an outpatient basis. Unable to rule out malignancy at this time. Call your primary care doctor TOMORROW for an appointment during the next 1-2 d ays.See the doctor sooner or return here if your condition worsens before your appointment time. ELY NGO PA-C Sep 30, 2018 20:49
== END 2018-09-30 20:46 | disposition home or self-care (01) ==
LOC: FTE 19:50
DX: N63.10 Unspecified lump in the right breast, unspecified quadrant (principal); J45.909 Unspecified asthma, uncomplicated
CPT/HCPCS: 99282